=== PATIENT | female | born 1955 | race Caucasian/White ===

== ENCOUNTER 2017-07-06 12:40 | Emergency (ER) | payer MEDICAID ==
[~2017-07-06] VITALS: Ht 154.9 cm; Wt 81.6 kg
--- NOTE | 2017-07-06 13:00 | NUR ---
BB FAMILY C/O OF BLE EDEMA AND SOB ON/OFF X 2 MONTHS, WORSENING THIS AM. SEEN BY MD. SAUCEDA. FAMILY MEMBER AT . SAFETY AND COMFORT MEASURES PROVIDED. WILL MONITOR.
[2017-07-06] MEDS ORDERED: IV NS 0.9% 500 ML BAG IV ONE (13:30)
--- NOTE | 2017-07-06 13:30 | NUR ---
IV ACCESS STARTED. BLOOD DRAWN FOR LABS. MEDICATED ORDERED.
[2017-07-06 13:35] LABS: BASOPHILS # (AUTO) 0.1 /CMM (0.0-0.2); BASOPHILS % (AUTO) 0.6 % (0.0-2.0); EOSINOPHILS # (AUTO) 0.1 /CMM (0.0-0.7); EOSINOPHILS % (AUTO) 1.2 % (0.0-6.0); HEMATOCRIT 38 % (33-45); HEMOGLOBIN 12.6 g/dL (11.5-14.8); LYMPHOCYTES # (AUTO) 2.6 /CMM (0.8-4.8); LYMPHOCYTES % (AUTO) 30.3 % (20.0-44.0); MEAN CORPUSCULAR HEMOGLOBIN 30 PG (26.0-33.0); MEAN CORPUSCULAR HGB CONC 33 g/dl (31.0-36.0); MEAN CORPUSCULAR VOLUME 91 fL (82-100); MONOCYTES # (AUTO) 0.5 /CMM (0.1-1.30); MONOCYTES % (AUTO) 5.6 % (2.0-12.0); NEUTROPHILS # (AUTO) 5.4 /CMM (1.8-8.9); NEUTROPHILS % (AUTO) 62.3 % (43.0-81.0); PLATELET COUNT (AUTO) 195 /CMM (150-450); RDW COEFFICIENT OF VARIATION 13.4 (11.5-15.0); WHITE BLOOD COUNT (AUTO) 8.7 K/uL (4.3-11.0)
[2017-07-06 13:55] LABS: CALCIUM, SERUM 8.5 mg/dL (8.5-10.1); CARBON DIOXIDE 26 mmol/L (21-32); CHLORIDE 106 mmol/L (98-107); CREATININE 0.6 mg/dL (0.6-1.3); GLUCOSE 126 mg/dL (74-106); POTASSIUM 3.7 mmol/L (3.5-5.1); SODIUM SERUM 139 mmol/L (136-145); UREA NITROGEN, BLOOD 16 mg/dL (7-18)
[2017-07-06 14:01] LABS: TROPONIN I < 0.017 ng/mL (0.00-0.056)
--- NOTE | 2017-07-06 14:50 | NUR ---
PT TAKEN TO CT.
[2017-07-06] MEDS ORDERED: IOHEXOL-350 100 ML VIAL IV ONE (15:16)
[2017-07-06] MEDS ORDERED: IV NS 0.9% 250 ML IV ONE (15:17)
--- NOTE | 2017-07-06 15:50 | NUR ---
IV removed. Catheter intact and site benign. Pressure and 4x4 applied to site. No bleeding noted.
--- NOTE | 2017-07-06 15:58 | NUR ---
Patient discharged to home in stable condition. Written and verbal after care instructions given. Patient verbalizes understanding of instruction.
[2017-07-06 15:59] VITALS: BP 126/81
== END 2017-07-06 15:59 | disposition home or self-care (01) ==
LOC: ER 12:41
DX: R07.89 Other chest pain (principal)
CPT/HCPCS: 36415; 71010; 71275; 80048; 84484; 85025; 85378; 93005; 99285; A4606; J7040; J7050; Q9967; Z7610

== ENCOUNTER 2017-11-27 10:31 | Inpatient (IN) | payer MEDICAID, OTHER ==
[~2017-11-27] VITALS: Ht 152.4 cm; Wt 73.9 kg
[2017-11-27] MEDS ORDERED: KETOROLAC TROMETHAMINE 15 MG/ML VIAL ONE (10:44)
[2017-11-27] MEDS ORDERED: ALBUTEROL FS 2.5 MG/3 ML VIAL.NEB ONE (10:48)
[2017-11-27] MEDS ORDERED: IPRATROPIUM NEB FS 0.5 MG/2.5 ML AMPUL.NEB ONE (10:48)
[2017-11-27 10:57] LABS: BASOPHILS # (AUTO) 0.1 /CMM (0.0-0.2); BASOPHILS % (AUTO) 0.6 % (0.0-2.0); EOSINOPHILS # (AUTO) 0.1 /CMM (0.0-0.7); EOSINOPHILS % (AUTO) 0.3 % (0.0-6.0); HEMATOCRIT 37 % (33-45); HEMOGLOBIN 12.9 g/dL (11.5-14.8); LYMPHOCYTES # (AUTO) 1.9 /CMM (0.8-4.8); LYMPHOCYTES % (AUTO) 10.8 % (20.0-44.0); MEAN CORPUSCULAR HEMOGLOBIN 31 PG (26.0-33.0); MEAN CORPUSCULAR HGB CONC 35 g/dl (31.0-36.0); MEAN CORPUSCULAR VOLUME 88 fL (82-100); MONOCYTES # (AUTO) 0.9 /CMM (0.1-1.30); MONOCYTES % (AUTO) 5.2 % (2.0-12.0); NEUTROPHILS # (AUTO) 14.4 /CMM (1.8-8.9); NEUTROPHILS % (AUTO) 83.1 % (43.0-81.0); PLATELET COUNT (AUTO) 132 /CMM (150-450); RDW COEFFICIENT OF VARIATION 12.9 (11.5-15.0); RED BLOOD CELL COUNT(AUTO) 4.18 MIL/uL (4.0-5.2); WHITE BLOOD COUNT (AUTO) 17.4 K/uL (4.3-11.0)
[2017-11-27] MEDS ORDERED: IPRATROPIUM NEB FS 0.5 MG/2.5 ML AMPUL.NEB NEB ONE (11:00)
[2017-11-27] MEDS ORDERED: ALBUTEROL FS 2.5 MG/3 ML VIAL.NEB NEB ONE (11:00)
[2017-11-27] MEDS ORDERED: KETOROLAC TROMETHAMINE INJ 30 MG/ML VIAL IV ONE (11:00)
[2017-11-27 11:03] LABS: CALCIUM, SERUM 9.5 mg/dL (8.5-10.1); CARBON DIOXIDE 28 mmol/L (21-32); CHLORIDE 102 mmol/L (98-107); CREATININE 0.7 mg/dL (0.6-1.3); GLUCOSE 108 mg/dL (74-106); POTASSIUM 3.8 mmol/L (3.5-5.1); SODIUM SERUM 137 mmol/L (136-145); UREA NITROGEN, BLOOD 12 mg/dL (7-18)
[2017-11-27 11:07] LABS: INR 0.91 (0.85-1.15)
[2017-11-27 11:11] LABS: TROPONIN I < 0.017 ng/mL (0.00-0.056)
[2017-11-27 11:15] LABS: B-TYPE NATRIURETIC PEPTIDE 45 PG/ML (0-125)
[2017-11-27 11:28] LABS: D-DIMER 0.64 mg/L(FEU (0.17-0.50)
[2017-11-27 11:37] LABS: BAND % (MANUAL) 1 % (0.0-5.0); LYMPHOCYTES % (MANUAL) 9 % (16-48); MONOCYTES % (MANUAL) 4 % (0-11.0); NEUTROPHILS % (MANUAL) 86 (42-76)
[2017-11-27] MEDS ORDERED: IOHEXOL-350 100 ML VIAL IV ONE (13:00)
[2017-11-27] MEDS ORDERED: CT SWABBABLE VALVE TRANS SET 1 EA INFUS.SET MC ONE (13:00)
[2017-11-27] MEDS ORDERED: SIMV20TA6 PO (13:58)
[2017-11-27] MEDS ORDERED: TRAM50TA2 PO (13:58)
[2017-11-27] MEDS ORDERED: ALEN70TA45 PO (13:58)
[2017-11-27] MEDS ORDERED: ERGO500014 PO (13:58)
[2017-11-27] MEDS ORDERED: ALBU18HF2 IH (13:58)
[2017-11-27] MEDS ORDERED: NAPR-1143 PO (13:58)
[2017-11-27] MEDS ORDERED: RANI150T8 PO (13:58)
[2017-11-27] MEDS ORDERED: CEFTRIAXONE 1GM BAG (ER ONLY) 50 ML IV ONE ×2 (14:00→14:14)
[2017-11-27] MEDS ORDERED: IV NS 0.9% 1,000 ML BAG IV ONE (14:00)
[2017-11-27] MEDS ORDERED: AZITHROMYCIN 500 MG in IV D5W 250 ML IV ONE (14:00)
[2017-11-27] MEDS ORDERED: ALBUTEROL FS 2.5 MG/0.5 ML VIAL.NEB NEB PRN (15:30)
[2017-11-27] MEDS ORDERED: TRAMADOL HCL 50 MG TABLET PO PRN (15:30)
[2017-11-27] MEDS ORDERED: ONDANSETRON HCL/PF 4 MG/2 ML VIAL IVP PRN (15:30)
[2017-11-27] MEDS ORDERED: MAG HYDROX/AL HYDROX/SIMETH 30 ML UDC PO PRN (15:30)
[2017-11-27] MEDS ORDERED: HYDROCODONE/APAP 5/325MG 1 EACH TABLET PO PRN (15:30)
[2017-11-27] MEDS ORDERED: MAGNESIUM HYDROXIDE 30 ML UDC PO PRN (15:30)
[2017-11-27] MEDS ORDERED: IPRATROPIUM NEB FS 0.5 MG/2.5 ML AMPUL.NEB NEB PRN (15:30)
[2017-11-27] MEDS ORDERED: ACETAMINOPHEN 325 MG TABLET PO PRN (15:30)
[2017-11-27] MEDS ORDERED: ZOLPIDEM TARTRATE 5 MG TABLET PO PRN (15:30)
[2017-11-27] MEDS ORDERED: Z GUARD REMEDY 2 OZ OINT TP PRN (15:30)
[2017-11-27 16:00] VITALS: BP 124/64
[2017-11-27] MEDS ORDERED: KETOROLAC TROMETHAMINE INJ 30 MG/ML VIAL IV PRN (17:00)
[2017-11-27] MEDS: methylPREDNISolone SOD SUCC 40 MG/ML VIAL IV SCH ×2 (17:27→21:10)
[2017-11-27] MEDS: SIMVASTATIN 20 MG TABLET PO SCH (17:28)
[2017-11-27] MEDS: NAPROXEN 500 MG TABLET PO SCH (17:28)
[2017-11-27] MEDS: ENOXAPARIN SODIUM 40 MG/0.4 ML DISP.SYRIN SQ SCH (17:29)
[2017-11-27] MEDS: LEVOFLOXACIN 750 MG /D5W 150ML 750 MG in PREMIX 1 EA IV SCH (17:40)
[2017-11-27] MEDS: IV NS 0.9% 1,000 ML IV PRN (17:40)
[2017-11-27 20:00] VITALS: BP 110/56
[2017-11-28] VITALS: BP 114/79
[2017-11-28 04:00] VITALS: BP 101/65
[2017-11-28] MEDS: methylPREDNISolone SOD SUCC 40 MG/ML VIAL IV SCH ×3 (04:32→20:16)
[2017-11-28] MEDS: IV NS 0.9% 1,000 ML IV PRN (04:32)
[2017-11-28 06:59] LABS: HEMATOCRIT 35 % (33-45); HEMOGLOBIN 11.8 g/dL (11.5-14.8); LYMPHOCYTES # (AUTO) 1.3 /CMM (0.8-4.8); LYMPHOCYTES % (AUTO) 8.9 % (20.0-44.0); MEAN CORPUSCULAR HEMOGLOBIN 31 PG (26.0-33.0); MEAN CORPUSCULAR HGB CONC 34 g/dl (31.0-36.0); MEAN CORPUSCULAR VOLUME 91 fL (82-100); MONOCYTES # (AUTO) 0.2 /CMM (0.1-1.30); MONOCYTES % (AUTO) 1.5 % (2.0-12.0); NEUTROPHILS # (AUTO) 13.4 /CMM (1.8-8.9); NEUTROPHILS % (AUTO) 89.6 % (43.0-81.0); PLATELET COUNT (AUTO) 127 /CMM (150-450); RDW COEFFICIENT OF VARIATION 14.3 (11.5-15.0); RED BLOOD CELL COUNT(AUTO) 3.81 MIL/uL (4.0-5.2)
[2017-11-28 07:42] LABS: CALCIUM, SERUM 8.7 mg/dL (8.5-10.1); CREATININE 0.6 mg/dL (0.6-1.3); MAGNESIUM 1.9 mg/dL (1.8-2.4); PHOSPHORUS 3.8 mg/dL (2.5-4.9)
[2017-11-28 08:00] VITALS: BP 113/64
[2017-11-28] MEDS: FAMOTIDINE (20 MG) 20 MG TABLET PO SCH (09:05)
[2017-11-28] MEDS: NAPROXEN 500 MG TABLET PO SCH ×2 (09:05→17:13)
[2017-11-28 16:00] VITALS: BP 120/67
[2017-11-28] MEDS: SIMVASTATIN 20 MG TABLET PO SCH (17:13)
[2017-11-28] MEDS: LEVOFLOXACIN 750 MG /D5W 150ML 750 MG in PREMIX 1 EA IV SCH (17:14)
[2017-11-28 20:00] VITALS: BP 130/69
[2017-11-28] MEDS: ENOXAPARIN SODIUM 40 MG/0.4 ML DISP.SYRIN SQ SCH (20:15)
[2017-11-28] MEDS ORDERED: SIMVASTATIN 20 MG TABLET PO SCH (21:00)
[2017-11-29] MEDS: IV NS 0.9% 1,000 ML IV PRN (02:44)
[2017-11-29] MEDS: methylPREDNISolone SOD SUCC 40 MG/ML VIAL IV SCH (04:04)
[2017-11-29 08:00] VITALS: BP 131/70
[2017-11-29] MEDS: FAMOTIDINE (20 MG) 20 MG TABLET PO SCH (08:38)
[2017-11-29] MEDS: NAPROXEN 500 MG TABLET PO SCH (08:38)
[2017-11-29] MEDS ORDERED: LEVO750T21 PO (11:11)
[2017-11-29] MEDS ORDERED: METH4TAB17 PO (11:11)
[2017-11-29] MEDS ORDERED: GUAI600T53 PO (11:11)
[2017-11-30] MEDS ORDERED: ALENDRONATE 70 MG TABLET PO SCH (07:30)
[2017-11-30] MEDS ORDERED: ERGOCALCIFEROL (VITAMIN D 2) 50,000 UNIT CAPSULE PO SCH (09:00)
== END 2017-11-29 12:15 | disposition home or self-care (01) | DRG 720 ==
LOC: ER 10:38 → MED 14:18 → TELE 16:46 → MED 11-28 05:33
PROVIDERS: ADMIT Nurse Practitioner Acute Care; ATTEND Nurse Practitioner Acute Care
DX: A41.9 Sepsis, unspecified organism (principal); J18.9 Pneumonia, unspecified organism; I50.9 Heart failure, unspecified; E66.9 Obesity, unspecified; Z68.31 Body mass index [BMI] 31.0-31.9, adult; J45.909 Unspecified asthma, uncomplicated; E78.5 Hyperlipidemia, unspecified; Z87.891 Personal history of nicotine dependence; Z90.710 Acquired absence of both cervix and uterus; D47.3 Essential (hemorrhagic) thrombocythemia
CPT/HCPCS: 36415; 71045-TC; 80048-TC; 80061-TC; 83605-TC; 83735-TC; 83880; 84100-TC; 84484-TC; 85025-TC; 85378-TC; 85730-TC; 87040-TC; 87400; 93307-TC; 93971-TC; A4216; A4606; J0456; J0696; J1650; J1885; J1956; J2920; J7030; J7040; J7060; Q9967; Z7610

== ENCOUNTER 2018-02-15 13:39 | Emergency (ER) | payer MEDICAID, OTHER ==
[~2018-02-15] VITALS: Ht 162.6 cm; Wt 72.6 kg
[~2018-02-15 13:39] MED LIST: ALBU18HF2 IH; ALEN70TA45 PO; ERGO500014 PO; GUAI600T53 PO; LEVO750T21 PO; METH4TAB17 PO; NAPR-1143 PO; RANI150T8 PO; SIMV20TA6 PO; TRAM50TA2 PO
--- NOTE | 2018-02-15 13:39 | NUR ---
A/OX4, PT CAME TO ER W/ DAUGHTER C/O OF BACK PAIN THAT RADIATES TO HER CHEST X 1 WEEK NOW. SKIN IS WARM AND NON DIAPHORETIC. RR EVEN AND UNLABORED. GOWNED AND PLACED ON CONT MONTIORING. ALL NEEDS ARE ATTENDED, KPET WARM AND COMFORTABLE. PENDING ER MD PULIDO
[2018-02-15] MEDS ORDERED: KETOROLAC TROMETHAMINE INJ 30 MG/ML VIAL ONE (15:16)
[2018-02-15 15:17] LABS: BASOPHILS # (AUTO) 0.1 /CMM (0.0-0.2); BASOPHILS % (AUTO) 0.7 % (0.0-2.0); EOSINOPHILS % (AUTO) 1.8 % (0.0-6.0); HEMATOCRIT 36 % (33-45); HEMOGLOBIN 12.2 g/dL (11.5-14.8); LYMPHOCYTES # (AUTO) 3.3 /CMM (0.8-4.8); LYMPHOCYTES % (AUTO) 31.5 % (20.0-44.0); MEAN CORPUSCULAR HGB CONC 34 g/dl (31.0-36.0); MEAN CORPUSCULAR VOLUME 89 fL (82-100); MONOCYTES # (AUTO) 0.6 /CMM (0.1-1.30); MONOCYTES % (AUTO) 5.7 % (2.0-12.0); NEUTROPHILS # (AUTO) 6.2 /CMM (1.8-8.9); NEUTROPHILS % (AUTO) 60.3 % (43.0-81.0); PLATELET COUNT (AUTO) 139 /CMM (150-450); RDW COEFFICIENT OF VARIATION 13.9 (11.5-15.0); RED BLOOD CELL COUNT(AUTO) 4.05 MIL/uL (4.0-5.2); WHITE BLOOD COUNT (AUTO) 10.4 K/uL (4.3-11.0)
--- NOTE | 2018-02-15 15:19 | NUR ---
toradol given ivp lac 20g pain 7/10 to back and chest.
[2018-02-15 15:30] LABS: CALCIUM, SERUM 9.1 mg/dL (8.5-10.1); CARBON DIOXIDE 27 mmol/L (21-32); CHLORIDE 106 mmol/L (98-107); CREATININE 0.6 mg/dL (0.6-1.3); GLUCOSE 99 mg/dL (74-106); INR 0.9 (0.85-1.15); POTASSIUM 3.6 mmol/L (3.5-5.1); SODIUM SERUM 141 mmol/L (136-145); UREA NITROGEN, BLOOD 17 mg/dL (7-18)
[2018-02-15] MEDS ORDERED: KETOROLAC TROMETHAMINE INJ 30 MG/ML VIAL IV ONE (15:30)
[2018-02-15 15:39] LABS: TROPONIN I < 0.017 ng/mL (0.00-0.056)
[2018-02-15 16:30] VITALS: BP 129/75
--- NOTE | 2018-02-15 16:43 | NUR ---
IV removed. Catheter intact and site benign. Pressure and 4x4 applied to site. No bleeding noted.Patient discharged to home in stable condition. Written and verbal after care instructions given. Patient verbalizes understanding of instruction.
[2018-04-13] MEDS ORDERED: AMOX500T2 PO (11:46)
[2018-04-13] MEDS ORDERED: AZIT250T PO (11:46)
== END 2018-02-15 16:47 | disposition home or self-care (01) ==
LOC: ER 13:40
DX: M54.6 Pain in thoracic spine (principal); E78.5 Hyperlipidemia, unspecified; Z87.01 Personal history of pneumonia (recurrent)
CPT/HCPCS: 36415; 71045; 80048; 84484; 85025; 85730; 93005; 96374; 99285; A4606; J1885; Z7610

== ENCOUNTER 2018-04-09 17:22 | Inpatient (IN) | payer OTHER, MEDICARE ==
[~2018-04-09] VITALS: Ht 167.6 cm; Wt 76.0 kg
--- NOTE | 2018-04-09 17:36 | NUR ---
PT AMBULATORY TO ER BED 15 C/O PRESSURE LIKE CP R/T LUE AND SOB. PT ALSO C/O GENERALIZED MALAISE. HX OF PNEUMONIA 2 MONTHS AGO. GOWNED AND PLACED ON MONITOR. STABLE VITALS. AWAITING MD PULIDO.
--- NOTE | 2018-04-09 17:57 | NUR ---
DR NUNEZ AT BEDSIDE FOR EVAL.
[2018-04-09] MEDS ORDERED: IV NS 0.9% 1,000 ML BAG IV ONE (18:00)
[2018-04-09] MEDS ORDERED: KETOROLAC TROMETHAMINE INJ 30 MG/ML VIAL IV ONE (18:00)
--- NOTE | 2018-04-09 18:10 | NUR ---
IV LINE STARTED BLOOD DRAWN AND SENT TO LAB.
[2018-04-09] MEDS ORDERED: KETOROLAC TROMETHAMINE 15 MG/ML VIAL ONE (18:12)
[2018-04-09 18:20] LABS: BASOPHILS # (AUTO) 0.1 /CMM (0.0-0.2); BASOPHILS % (AUTO) 1.8 % (0.0-2.0); EOSINOPHILS % (AUTO) 0.1 % (0.0-6.0); HEMATOCRIT 39 % (33-45); HEMOGLOBIN 12.8 g/dL (11.5-14.8); LYMPHOCYTES # (AUTO) 1.1 /CMM (0.8-4.8); LYMPHOCYTES % (AUTO) 16.5 % (20.0-44.0); MEAN CORPUSCULAR HEMOGLOBIN 30 PG (26.0-33.0); MEAN CORPUSCULAR HGB CONC 33 g/dl (31.0-36.0); MEAN CORPUSCULAR VOLUME 89 fL (82-100); MONOCYTES # (AUTO) 0.3 /CMM (0.1-1.30); MONOCYTES % (AUTO) 4.9 % (2.0-12.0); NEUTROPHILS % (AUTO) 76.7 % (43.0-81.0); RDW COEFFICIENT OF VARIATION 13.9 (11.5-15.0); RED BLOOD CELL COUNT(AUTO) 4.33 MIL/uL (4.0-5.2); WHITE BLOOD COUNT (AUTO) 6.5 K/uL (4.3-11.0)
[2018-04-09 18:23] LABS: PLATELET COUNT (AUTO) 50 /CMM (150-450)
[2018-04-09 18:24] LABS: CALCIUM, SERUM 9.2 mg/dL (8.5-10.1); CARBON DIOXIDE 26 mmol/L (21-32); CHLORIDE 103 mmol/L (98-107); CREATININE 0.7 mg/dL (0.6-1.3); GLUCOSE 122 mg/dL (74-106); POTASSIUM 3.7 mmol/L (3.5-5.1); SODIUM SERUM 135 mmol/L (136-145); UREA NITROGEN, BLOOD 10 mg/dL (7-18)
[2018-04-09 18:26] LABS: INR 0.95 (0.85-1.15)
[2018-04-09 18:32] LABS: TROPONIN I < 0.017 ng/mL (0.00-0.056)
[2018-04-09] MEDS ORDERED: MECL-138 PO (18:32)
[2018-04-09] MEDS ORDERED: OMEP40CA37 PO (18:32)
[2018-04-09] MEDS ORDERED: GUAI600T53 PO (18:32)
[2018-04-09] MEDS ORDERED: FLUT1BLS IH (18:32)
[2018-04-09] MEDS ORDERED: BUSP5TAB3 PO (18:32)
[2018-04-09] MEDS ORDERED: METH-406 PO (18:32)
--- NOTE | 2018-04-09 18:50 | NUR ---
PT TO RADIOLOGY FOR CHEST CTA VIA WHEELCHAIR.
[2018-04-09] MEDS ORDERED: IOHEXOL-350 100 ML VIAL IV ONE (18:53)
--- NOTE | 2018-04-09 19:41 | NUR ---
PATIENT ASSIGNED TO TELE [id number]
[2018-04-09 19:57] LABS: BAND % (MANUAL) 2 % (0.0-5.0); LYMPHOCYTES % (MANUAL) 14 % (16-48); MONOCYTES % (MANUAL) 6 % (0-11.0); NEUTROPHILS % (MANUAL) 77 (42-76); REACTIVE LYMPHOCYTES 1 % (0-0)
[2018-04-09] MEDS ORDERED: AZITHROMYCIN 500 MG in IV D5W 250 ML IV ONE (20:00)
[2018-04-09] MEDS ORDERED: MORPHINE SULFATE INJ 2 MG/ML DISP.SYRIN IV ONE (20:00)
[2018-04-09] MEDS ORDERED: CEFTRIAXONE 1GM BAG (ER ONLY) 1 GM/50 ML PIGGYBACK IV ONE (20:00)
[2018-04-09] MEDS ORDERED: MORPHINE SULFATE INJ 4 MG/ML DISP.SYRIN ONE (20:00)
[2018-04-09] MEDS ORDERED: CEFTRIAXONE 1 G VIAL ONE (20:09)
[2018-04-09] MEDS ORDERED: AZITHROMYCIN 500 MG VIAL ONE (20:10)
[2018-04-09] MEDS ORDERED: IV NS 0.9% 1,000 ML BAG IV PRN (20:30)
--- NOTE | 2018-04-09 20:34 | NUR ---
report given to halley doyle for continuation of care.
[2018-04-09 20:55] VITALS: BP 147/72
--- NOTE | 2018-04-09 20:55 | NUR ---
PT ARRIVE ON UNIT VIA GURNEY AND ADMITTED TO TELEMETRY. PT A/O X4 TAJIK SPEAKING, DAUGHTER AT THE BED SIDE. ADMITTING DX PNEUMONIA. PT ARRIVE WITH ONGOING NS 0.9% AT 75 ML/HR. PT HAD EPISODE OF VOMITING NON SIGNIFICANT AMOUNT COLORLESS. ADMITTING HOME HEALTH CARE COORDINATOR IS DUDLEY. WILL CONTINUE TO MONITOR AND FOLLOW HOME HEALTH CARE COORDINATOR ORDERS.
[2018-04-09 21:45] VITALS: BP 147/72
--- NOTE | 2018-04-09 21:50 | NUR ---
PT SEEN BY ADEBAYO DUDLEY . WILL FOLLOW UP WITH ORDERS
[2018-04-09] MEDS ORDERED: IV NS 0.9% 1,000 ML IV PRN (22:04)
[2018-04-09] MEDS ORDERED: HYDROCODONE/APAP 5/325MG 1 EACH TABLET PO PRN (22:30)
[2018-04-09] MEDS ORDERED: Z GUARD REMEDY 2 OZ OINT TP PRN (22:30)
[2018-04-09] MEDS ORDERED: MORPHINE SULFATE INJ 2 MG/ML DISP.SYRIN IV PRN (22:30)
[2018-04-09] MEDS ORDERED: ONDANSETRON HCL/PF 4 MG/2 ML VIAL IVP PRN (22:30)
[2018-04-09] MEDS ORDERED: MAGNESIUM HYDROXIDE 30 ML UDC PO PRN (22:30)
[2018-04-09] MEDS ORDERED: GUAIFENESIN LA 600 MG TABLET.SA PO PRN (22:30)
[2018-04-09] MEDS ORDERED: MAG HYDROX/AL HYDROX/SIMETH 30 ML UDC PO PRN (22:30)
[2018-04-09] MEDS: CEFTRIAXONE 1 G in IV NS 0.9% 50 ML IV SCH (22:54)
[2018-04-10] MEDS: ZOLPIDEM TARTRATE 5 MG TABLET PO PRN (00:36)
[2018-04-10 00:48] VITALS: BP 105/58
[2018-04-10 04:30] VITALS: BP 115/60
[2018-04-10 05:58] LABS: BASOPHILS % (AUTO) 0.3 % (0.0-2.0); EOSINOPHILS % (AUTO) 0.3 % (0.0-6.0); HEMATOCRIT 38 % (33-45); HEMOGLOBIN 12.6 g/dL (11.5-14.8); LYMPHOCYTES # (AUTO) 1.3 /CMM (0.8-4.8); LYMPHOCYTES % (AUTO) 19.4 % (20.0-44.0); MEAN CORPUSCULAR HEMOGLOBIN 31 PG (26.0-33.0); MEAN CORPUSCULAR HGB CONC 33 g/dl (31.0-36.0); MEAN CORPUSCULAR VOLUME 92 fL (82-100); MONOCYTES # (AUTO) 0.5 /CMM (0.1-1.30); MONOCYTES % (AUTO) 8.4 % (2.0-12.0); NEUTROPHILS # (AUTO) 4.7 /CMM (1.8-8.9); NEUTROPHILS % (AUTO) 71.6 % (43.0-81.0); RDW COEFFICIENT OF VARIATION 14.7 (11.5-15.0); RED BLOOD CELL COUNT(AUTO) 4.11 MIL/uL (4.0-5.2); WHITE BLOOD COUNT (AUTO) 6.5 K/uL (4.3-11.0)
--- NOTE | 2018-04-10 06:13 | NUR ---
MS RN CLOSING NOTES PT IN BED, A/O X4 , MOHAWK SPEAKING. PT ON ROOM AIR TOLERATING WELL. PT HAS IV ASSESS ON R HAND G #20, ONGOING NS AT 75ML/HR. NO DISTRESS NOTED , PT DENIES CHEST PAIN AT THIS TIME. SAFETY PRECAUTIONS IN PLACE, CALL LIGHT WITHIN REACH. WILL ENDORSE TO NEXT SHIFT FOR MOJGAN.
[2018-04-10 06:17] LABS: ALBUMIN 2.8 g/dL (3.4-5.0); BILIRUBIN,TOTAL 0.3 mg/dL (0.2-1.0); CALCIUM, SERUM 7.9 mg/dL (8.5-10.1); CREATININE 0.7 mg/dL (0.6-1.3); MAGNESIUM 1.7 mg/dL (1.8-2.4); PHOSPHORUS 3.6 mg/dL (2.5-4.9); POTASSIUM 3.5 mmol/L (3.5-5.1); TOTAL PROTEIN, SERUM 6.4 g/dL (6.4-8.2)
[2018-04-10 06:22] LABS: PLATELET COUNT (AUTO) 48 /CMM (150-450)
[2018-04-10 06:26] LABS: THYROID STIMULATING HORMONE 4.353 uIU/mL (0.358-3.74)
--- NOTE | 2018-04-10 06:40 | NUR ---
LAB CALLED FOR PLT LOW RESULT OF 48.
--- NOTE | 2018-04-10 07:05 | NUR ---
COMPENSATOR NOTES PATIENT IN BED ALERT ORIENTED X4 . NO ACUTE DISTRESS NOTED. BREATHING UNLABORED. NO SOB NOTED. NO FACIAL GRIMACING NOTED. IV ACCESS PATENT AND INTACT, NO REDNESS OR SWELLING NOTED. SAFETY MEASURES IN PLACE. CALL LIGHT WITHIN REACH. WILL CONTINUE TO MONITOR ACCORDINGLY.
[2018-04-10] MEDS ORDERED: MECLIZINE HCL 25 MG TABLET PO PRN (07:30)
[2018-04-10] MEDS ORDERED: ALBUTEROL FS 2.5 MG/3 ML VIAL.NEB NEB PRN (07:35)
[2018-04-10 08:00] VITALS: BP 101/59
[2018-04-10] MEDS: Magnesium 1GM/D5W 100ML PREMIX 100 ML IV SCH ×2 (08:20→10:02)
[2018-04-10] MEDS: METHOCARBAMOL (750MG) 750 MG TABLET PO SCH ×2 (08:20→17:12)
[2018-04-10] MEDS: PANTOPRAZOLE 40 MG TABLET.DR PO SCH (08:20)
[2018-04-10] MEDS: FAMOTIDINE (20 MG) 20 MG TABLET PO SCH ×2 (08:20→21:10)
[2018-04-10] MEDS: busPIRone 5 MG TABLET PO SCH ×2 (08:20→17:12)
[2018-04-10] MEDS: FLUTICASONE/VILANTEROL 1 EACH BLST.W.DEV IH SCH ×2 (08:21→17:13)
--- NOTE | 2018-04-10 09:45 | NUR ---
JIG BORER NOTES NOTIFIED SOFTWARE ENGINEERING ASSOCIATE MANAGER YOLY BEAL REGADING LOW PLATELET LEVEL, NO ORDERS MADE AT THIS TIME.
[2018-04-10 09:55] LABS: BAND % (MANUAL) 3 % (0.0-5.0); EOSINOPHILS % (MANUAL) 1 % (0-4); LYMPHOCYTES % (MANUAL) 18 % (16-48); MONOCYTES % (MANUAL) 4 % (0-11.0); NEUTROPHILS % (MANUAL) 74 (42-76)
[2018-04-10] MEDS: ACETAMINOPHEN 325 MG TABLET PO PRN ×2 (10:33→18:27)
[2018-04-10 12:00] VITALS: BP 138/76
[2018-04-10 16:00] VITALS: BP 107/63
[2018-04-10] MEDS: LACTOBACILLUS RHAMNOSUS GG 1 EACH CAP.SPRINK PO SCH (17:12)
--- NOTE | 2018-04-10 18:56 | NUR ---
MS RN NOTES PATIENT IN BED ALERT ORIENTED X4. NO ACUTE DISTRESS NOTED. BREATHING UNLABORED. NO SOB NOTED. NO FACIAL GRIMACING NOTED. IV ACCESS PATENT AND INTACT, NO REDNESS OR SWELLING NOTED.DUE MEDICATIONS GIVEN, NO ASE NOTED. NEEDS ATTENDED AND ANTICIPATED. KEPT CLEAN DRY AND COMFORTABLE. SAFETY MEASURES IN PLACE. CALL LIGHT WITHIN REACH. WILL ENDORSE TO NIGHT NURSE FOR CONTINUITY OF CARE..
--- NOTE | 2018-04-10 19:00 | NUR ---
MS RN OPENING NOTES PATIENT IN BED ALERT ORIENTED X4. NO ACUTE DISTRESS NOTED.DENIES PAIN AT THIS TIME. IV ACCESS PATENT AND INTACT. PT SWEDISH SPEAKING . WILL CONTINUE TO MONITOR AND CARE.
--- NOTE | 2018-04-10 19:22 | NUR ---
MS ERIN OPENING NOTES PATIENT IN BED ALERT ORIENTED X4. NO ACUTE DISTRESS NOTED.DENIES PAIN AT THIS TIME. IV ACCESS PATENT AND INTACT.PT ON F/C DUE TO MULTIPLE WOUNDS. SAFETY MEASURES IN PLACE. CALL LIGHT WITHIN REACH. WILL CONTINUE TO MONITOR Addendum: 04/10/18 at 1926 by NICOLETTE MARTIN RN WRONG PATIENT DOCUMENTATION
[2018-04-10 20:00] VITALS: BP 121/64
[2018-04-10] MEDS: AZITHROMYCIN 500 MG in IV D5W 250 ML IV SCH (20:08)
--- NOTE | 2018-04-10 21:30 | NUR ---
iv line infiltrated, removed , hand elevated . A new iv line inserted on left AC # 22.
[2018-04-10] MEDS: CEFTRIAXONE 1 G in IV NS 0.9% 50 ML IV SCH (23:31)
--- NOTE | 2018-04-11 06:46 | NUR ---
ms rn closing notes PT IN BED, A/O X4, AMBULATORY WITH ASSISTANCE. NO DISTRESS, NO PAIN , NO FEVER AT THIS TIME. IV LINE RAC G 20 INTACT AND PATENT. BED IN LOWEST AND LOCKED POSITION, SIDE RAILS UP X2. CALL LIGHT WITHIN REACH. PT MOHAWK SPEAKING. WILL ENDORSE TO NEXT SHIFT FOR MOJGAN.
[2018-04-11 08:00] VITALS: BP 128/66
--- NOTE | 2018-04-11 08:00 | NUR ---
MS RN NOTES PATIENT IN BED RESTING NO SOB OR ACUTE DISTRESS NOTED. PATIENT ALERT, ORIENTED X3 PATIENT DENIES ANY PAIN. PERIPHERAL IV INTACT PATENT. BED IN LOW LOCKED POSITION . CALL LIGHT WITHIN REACH. WILL CONTINUE TO MONITOR.
[2018-04-11] MEDS: FAMOTIDINE (20 MG) 20 MG TABLET PO SCH ×2 (08:42→20:29)
[2018-04-11] MEDS: FLUTICASONE/VILANTEROL 1 EACH BLST.W.DEV IH SCH (08:42)
[2018-04-11] MEDS: METHOCARBAMOL (750MG) 750 MG TABLET PO SCH ×2 (08:42→17:11)
[2018-04-11] MEDS: busPIRone 5 MG TABLET PO SCH ×2 (08:42→17:11)
[2018-04-11] MEDS: LACTOBACILLUS RHAMNOSUS GG 1 EACH CAP.SPRINK PO SCH ×2 (08:42→17:11)
[2018-04-11] MEDS: PANTOPRAZOLE 40 MG TABLET.DR PO SCH (08:44)
[2018-04-11 11:03] LABS: BASOPHILS % (AUTO) 0.5 % (0.0-2.0); EOSINOPHILS % (AUTO) 0.4 % (0.0-6.0); HEMATOCRIT 37 % (33-45); HEMOGLOBIN 12.3 g/dL (11.5-14.8); LYMPHOCYTES # (AUTO) 1.3 /CMM (0.8-4.8); LYMPHOCYTES % (AUTO) 22.7 % (20.0-44.0); MEAN CORPUSCULAR HEMOGLOBIN 30 PG (26.0-33.0); MEAN CORPUSCULAR HGB CONC 33 g/dl (31.0-36.0); MEAN CORPUSCULAR VOLUME 91 fL (82-100); MONOCYTES # (AUTO) 0.5 /CMM (0.1-1.30); MONOCYTES % (AUTO) 9.2 % (2.0-12.0); NEUTROPHILS # (AUTO) 3.8 /CMM (1.8-8.9); NEUTROPHILS % (AUTO) 67.2 % (43.0-81.0); PLATELET COUNT (AUTO) 75 /CMM (150-450); RDW COEFFICIENT OF VARIATION 14.6 (11.5-15.0); RED BLOOD CELL COUNT(AUTO) 4.11 MIL/uL (4.0-5.2); WHITE BLOOD COUNT (AUTO) 5.7 K/uL (4.3-11.0)
[2018-04-11 11:15] LABS: CALCIUM, SERUM 7.9 mg/dL (8.5-10.1); CREATININE 0.8 mg/dL (0.6-1.3); POTASSIUM 3.7 mmol/L (3.5-5.1)
[2018-04-11 11:21] LABS: IRON, SERUM 28 ug/dl (50-175); TOTAL IRON BINDING CAPACITY 317 ug/dl (250-450)
[2018-04-11 11:33] LABS: FERRITIN 203 ng/mL (8-388)
[2018-04-11 11:41] LABS: LYMPHOCYTES % (MANUAL) 20 % (16-48); MONOCYTES % (MANUAL) 8 % (0-11.0); NEUTROPHILS % (MANUAL) 72 (42-76)
[2018-04-11] MEDS: ACETAMINOPHEN 325 MG TABLET PO PRN (14:48)
[2018-04-11 16:00] VITALS: BP 127/58
--- NOTE | 2018-04-11 18:15 | NUR ---
MS RN NOTES PATIENT IN BED RESTING NO SOB OR ACUTE DISTRESS NOTED. ALL DUE MEDICATIONS ADMINISTERED. ALL NEEDS MET WILL ENDORSE TO PM SHIFT MOJGAN .
[2018-04-11] MEDS: ALBUTEROL FS 2.5 MG/3 ML VIAL.NEB NEB SCH (19:23)
--- NOTE | 2018-04-11 19:35 | NUR ---
MS RN OPENING NOTES RECEIVED PATIENT IN BED ALERT ORIENTED X 4. NO ACUTE DISTRESS NOTED. DENIES PAIN AT THIS TIME. IV ACCESS PATENT AND INTACT,HL. FAMILY @ BEDSIDE. AMBULATORY TOLERATED. PT ALLISON SPEAKING . BED IN LOW LOCKED POSITION. SAFETY MEASURES IN PLACE. CALL LIGHT WITHIN REACH. WILL CONTINUE TO MONITOR AND CARE.
[2018-04-11 20:00] VITALS: BP 124/71
[2018-04-11] MEDS: AZITHROMYCIN 500 MG in IV D5W 250 ML IV SCH (20:29)
[2018-04-11] MEDS: CEFTRIAXONE 1 G in IV NS 0.9% 50 ML IV SCH (23:07)
--- NOTE | 2018-04-11 23:30 | NUR ---
IV SITE CHANGED PT'S LEFT FA IV SITE NOTED TO BE REDDENED, IV CATH REMOVED, COLD PACK APPLIED. NEW IV CATH INSERTED TO LEFT WRIST WITH GOOD BLOOD FLOW RETURN. PROCEDURE TOLERATED WELL BY THE PT. NO COMPLICATIONS NOTED. IN STABLE CONDITION.
[2018-04-12] MEDS: ALBUTEROL FS 2.5 MG/3 ML VIAL.NEB NEB SCH ×4 (01:24→19:09)
--- NOTE | 2018-04-12 03:00 | NUR ---
MS RN NOTE PT IS SLEEPING COMFORTABLY. NO MOJGAN NOTED.
--- NOTE | 2018-04-12 06:33 | NUR ---
MS RN CLOSING NOTE PT IS RESTING IN BED, A/O X 4, AMBULATORY GORDON. NO DISTRESS, NO PAIN , NO FEVER AT THIS TIME. IV LINE TO LEFT WRIST G 20 INTACT AND PATENT, SL. BED IN LOWEST AND LOCKED POSITION, SIDE RAILS UP X 2. CALL LIGHT WITHIN REACH. PT MALTESE SPEAKING. WILL ENDORSE TO NEXT SHIFT FOR MOJGAN.
--- NOTE | 2018-04-12 07:30 | NUR ---
RN OPENING NOTES RECEIVED PT. IN BED A&OX4. BREATHING UNLABORED, AND EVENLY ON ROOM AIR. NO S/S OF ACUTE DISTRESS. IV ON LEFT WRIST INTACT. BED IS IN LOWEST, AND LOCKED POSITION. 2 SIDE RAILS UP, AND INSTRUCTED PT. TO USE CALL LIGHT FOR ASSISTANCE.
[2018-04-12 08:00] VITALS: BP 145/78
--- NOTE | 2018-04-12 08:00 | NUR ---
PER RT PT. REFUSED RESPIRATORY TREATMENT.
[2018-04-12] MEDS: PANTOPRAZOLE 40 MG TABLET.DR PO SCH (08:03)
[2018-04-12] MEDS: ACETAMINOPHEN 325 MG TABLET PO PRN (08:03)
[2018-04-12] MEDS: FAMOTIDINE (20 MG) 20 MG TABLET PO SCH ×2 (08:52→20:30)
[2018-04-12] MEDS: METHOCARBAMOL (750MG) 750 MG TABLET PO SCH ×2 (08:52→16:57)
[2018-04-12] MEDS: busPIRone 5 MG TABLET PO SCH ×2 (08:52→16:57)
[2018-04-12] MEDS: LACTOBACILLUS RHAMNOSUS GG 1 EACH CAP.SPRINK PO SCH ×2 (08:53→16:57)
[2018-04-12 12:29] LABS: BASOPHILS % (AUTO) 0.4 % (0.0-2.0); EOSINOPHILS % (AUTO) 2.2 % (0.0-6.0); HEMATOCRIT 36 % (33-45); HEMOGLOBIN 12.1 g/dL (11.5-14.8); LYMPHOCYTES # (AUTO) 1.7 /CMM (0.8-4.8); LYMPHOCYTES % (AUTO) 32.5 % (20.0-44.0); MEAN CORPUSCULAR HEMOGLOBIN 30 PG (26.0-33.0); MEAN CORPUSCULAR HGB CONC 33 g/dl (31.0-36.0); MEAN CORPUSCULAR VOLUME 92 fL (82-100); MONOCYTES # (AUTO) 0.6 /CMM (0.1-1.30); MONOCYTES % (AUTO) 11.8 % (2.0-12.0); NEUTROPHILS # (AUTO) 2.8 /CMM (1.8-8.9); NEUTROPHILS % (AUTO) 53.1 % (43.0-81.0); PLATELET COUNT (AUTO) 92 /CMM (150-450); RED BLOOD CELL COUNT(AUTO) 3.97 MIL/uL (4.0-5.2); WHITE BLOOD COUNT (AUTO) 5.2 K/uL (4.3-11.0)
[2018-04-12 13:22] LABS: BAND % (MANUAL) 7 % (0.0-5.0); LYMPHOCYTES % (MANUAL) 11 % (16-48); MONOCYTES % (MANUAL) 12 % (0-11.0); NEUTROPHILS % (MANUAL) 70 (42-76)
[2018-04-12 13:28] LABS: CALCIUM, SERUM 8.4 mg/dL (8.5-10.1); CREATININE 0.9 mg/dL (0.6-1.3); POTASSIUM 3.9 mmol/L (3.5-5.1)
[2018-04-12 16:00] VITALS: BP 125/68
[2018-04-12] MEDS: SOD FERRIC GLUC 125 MG in IV NS 0.9% 100 ML IV SCH (16:55)
--- NOTE | 2018-04-12 19:00 | NUR ---
MS RN OPENING NOTE Patient was seen sitting upright in bed receiving a scheduled breathing treatment by RT. Patient is AAOx4, normally breathes on RA, currently shows no signs of acute distress. Left wrist IV is intact and patent. Bed is in the low/locked position, two side rails up, and call norwood within reach. Two sons are at the bedside. Patient does not have any immediate needs or concerns. Will continue to monitor.
--- NOTE | 2018-04-12 19:30 | NUR ---
RN CLOSING NOTES PT. IS SITTING UP IN BED A&OX4. PT.'S FAMILY IS AT BEDSIDE. BREATHING UNLABORED, AND EVENLY ON ROOM AIR. NO S/S OF ACUTE DISTRESS. IV ON LEFT WRIST INTACT, AND PATENT. BED IS IN LOWEST, AND LOCKED POSITION. 2 SIDE RAILS UP, AND INSTRUCTED PT. TO USE CALL LIGHT FOR ASSISTANCE. WILL ENDORSE REPORT TO NURSE.
[2018-04-12 20:00] VITALS: BP 125/71
[2018-04-12] MEDS: AZITHROMYCIN 500 MG in IV D5W 250 ML IV SCH (20:30)
[2018-04-12] MEDS ORDERED: ERGOCALCIFEROL (VITAMIN D 2) 50,000 UNIT CAPSULE PO SCH (22:30)
[2018-04-12] MEDS ORDERED: ALENDRONATE 70 MG TABLET PO SCH (22:30)
--- NOTE | 2018-04-12 23:00 | NUR ---
MS RN NOTE - New IV 24g IV in the left wrist was removed around 20:15 PM due to pain, redness, and swelling. Antibiotics disconnected and put on hold at that time. I attempted to start a new IV twice but was unsuccessful. Charge Nurse Corrie attempted new IV but was unsuccessful. Lucero, supervising nurse, successfully started new IV in the left wrist 22g. Antibiotics have been connected and restarted. IV Rocephin scheduled for 0 will be administered late but as soon as current IV antibiotic is complete.
[2018-04-13] MEDS: CEFTRIAXONE 1 G in IV NS 0.9% 50 ML IV SCH (00:31)
[2018-04-13] MEDS: ZOLPIDEM TARTRATE 5 MG TABLET PO PRN (00:36)
--- NOTE | 2018-04-13 00:37 | NUR ---
MS RN NOTE - Ambien Patient requested sleeping medication for difficulty falling asleep, despite making room "sleep friendly", i.e. minimizing noise and light. 5mg PO Ambien administered per orders.
[2018-04-13] MEDS: ALBUTEROL FS 2.5 MG/3 ML VIAL.NEB NEB SCH ×4 (01:30→13:57)
--- NOTE | 2018-04-13 06:47 | NUR ---
MS RN CLOSING NOTE Patient is AAOx4, breathing on RA with no SOB, and no signs of acute distress. Patient slept well overnight with no complaints and without complications. Patient remains in stable condition with all needs met this shift. Bed is low/locked, two side rails up, and call norwood within reach. Patient does not have any immediate needs or concerns at this time. Patient care endorsed to day shift nurse.
--- NOTE | 2018-04-13 07:28 | NUR ---
MS RN OPENING NOTE RECEIVED PATIENT IN BED, SLEEPING, EASILY AROUSED WITH VERBAL STIMULI, ORIENTED X4. ON ROOM AIR TOLERATING WELL. RESPIRATIONS EVEN AND UNLABORED. IN NO APPARENT DISTRESS OR DISCOMFORT AT THIS TIME. PATIENT IS ABLE TO COMMUNICATE NEED. DENIES PAIN AND SOB AT THIS TIME. PATIENT IS AMBULATORY WITH BRP. WITH LEFT WRIST 22G IVC, SL, PATENT AND INTACT. ALL NEEDS ATTENDED, KEPT CLEAN AND COMFORTABLE. SAFETY MEASURES IN PLACE, BED IN LOW LOCKED POSITION, SIDE RAILS UP X2, CALL LIGHT WITHIN EASY REACH. WILL CONTINUE TO MONITOR.
[2018-04-13 08:00] VITALS: BP 120/68
[2018-04-13 08:21] LABS: OCCULT BLOOD STOOL NEGATIVE (NEGATIVE)
[2018-04-13] MEDS: PANTOPRAZOLE 40 MG TABLET.DR PO SCH (08:21)
[2018-04-13] MEDS: LACTOBACILLUS RHAMNOSUS GG 1 EACH CAP.SPRINK PO SCH (08:21)
[2018-04-13] MEDS: FAMOTIDINE (20 MG) 20 MG TABLET PO SCH (08:21)
[2018-04-13] MEDS: METHOCARBAMOL (750MG) 750 MG TABLET PO SCH (08:21)
[2018-04-13] MEDS: busPIRone 5 MG TABLET PO SCH (08:21)
[2018-04-13] MEDS ORDERED: AZIT250T PO (11:46)
[2018-04-13] MEDS ORDERED: AMOX500T2 PO (11:46)
[2018-04-13] MEDS: SOD FERRIC GLUC 125 MG in IV NS 0.9% 100 ML IV SCH (13:22)
--- NOTE | 2018-04-13 15:04 | NUR ---
MS MANUFACTURING WEAVER NOTE RECEIVED ODER FOR DISCHARGE. PATIENT IN STABLE CONDITION, VITAL SIGNS WNL. ALERT ORIENTED X4. ON ROOM AIR WITH O2 SATURATION ABOVE 97%. ALL DUE MEDICATIONS GIVEN, DISCHARGE INSTRUCTIONS PREPARED VIA EXITCARE. EDUCATION PROVIDED TO THE PATIENT, VERBALLY AND VIA HANDOUT, REGARDING NEW AND OLD MEDICATIONS, DISCHARGE INSTRUCTIONS AND FOLLOW UP CARE. PAPERWORK SIGNED, NEW PRESCRIPTION MEDICATIONS WAS PROVIDED TO THE PATIENT WELL FAXED TO THER PREFERRED PHARMACY. ALL BELONGINGS ARE CHECKED AND ACCOUNTED FOR. IVC REMOVED UPON DEPARTURE, TIP INTACT, NO SIGN OF INFECTION OBSERVED. ID BAND REMOVED. PATIENT LEFT THE UNIT AMBULATING INDEPENDENTLY WITH THE ESCORT OF DAUGHTER AND LASHAUN HEALY AT 1500.
[2018-04-13] MEDS ORDERED: AZITHROMYCIN 250 MG TABLET PO SCH (20:00)
== END 2018-04-13 15:00 | disposition home or self-care (01) | DRG 720 ==
LOC: ER 17:24 → TELE 20:11 → MED 04-10 14:36
PROVIDERS: ADMIT Nurse Practitioner Acute Care; ATTEND Nurse Practitioner Acute Care
DX: A41.9 Sepsis, unspecified organism (principal); E46 Unspecified protein-calorie malnutrition; J18.9 Pneumonia, unspecified organism; D69.6 Thrombocytopenia, unspecified; B44.81 Allergic bronchopulmonary aspergillosis; E87.1 Hypo-osmolality and hyponatremia; E88.09 Other disorders of plasma-protein metabolism, not elsewhere classified; E83.42 Hypomagnesemia; E78.5 Hyperlipidemia, unspecified; E66.9 Obesity, unspecified; J45.909 Unspecified asthma, uncomplicated; Z87.01 Personal history of pneumonia (recurrent); Z87.891 Personal history of nicotine dependence; R07.89 Other chest pain; Z68.27 Body mass index [BMI] 27.0-27.9, adult; J40 Bronchitis, not specified as acute or chronic; E86.1 Hypovolemia; Z82.49 Family history of ischemic heart disease and other diseases of the circulatory system
CPT/HCPCS: 36415; 71045-TC; 80048-TC; 80053-TC; 80061-TC; 82272-TC; 82306; 82728-TC; 83540-TC; 83605-TC; 83735-TC; 83880; 84100-TC; 84443-TC; 84484-TC; 85025-TC; 85730-TC; 87040-TC; 87081-TC; 93307-TC; 93970-TC; A4216; A4606; J0456; J0696; J1885; J2270; J2916; J3475; J7030; J7060; Q9967; Z7610

== ENCOUNTER 2018-11-28 20:13 | Emergency (ER) | payer MEDICARE, MEDICAID ==
[~2018-11-28] VITALS: Ht 157.5 cm; Wt 77.1 kg
[~2018-11-28 20:13] MED LIST changes: -ALEN70TA45 PO; +ALEN70TA6 PO; +AMOX500T2 PO; +AZIT250T PO; +BUSP5TAB3 PO; +FLUT1BLS IH; -LEVO750T21 PO; +MECL-138 PO; +METH-406 PO; -METH4TAB17 PO; +OMEP40CA37 PO; -SIMV20TA6 PO
--- NOTE | 2018-11-28 20:20 | NUR ---
PT BIBSELF C/C "R SIDE RIB PAIN X1 DAY" +SOB , +DIZZY, +N/V. PT TURKS AND [place] SPEAKING. DAUGHTER AT BEDSIDE. AOX4. PT ON MONITOR IN BED 11. WILL CONTINUE TO MONITOR.
--- NOTE | 2018-11-28 20:40 | NUR ---
BLOOD DRAWN AND GIVEN TO LAB
[2018-11-28 20:49] LABS: BASOPHILS # (AUTO) 0.1 /CMM (0.0-0.2); BASOPHILS % (AUTO) 0.5 % (0.0-2.0); EOSINOPHILS % (AUTO) 1.1 % (0.0-6.0); HEMATOCRIT 39 % (33-45); HEMOGLOBIN 12.9 g/dL (11.5-14.8); LYMPHOCYTES # (AUTO) 3.1 /CMM (0.8-4.8); LYMPHOCYTES % (AUTO) 29.1 % (20.0-44.0); MEAN CORPUSCULAR HGB CONC 33 g/dl (31.0-36.0); MEAN CORPUSCULAR VOLUME 94 fL (82-100); MONOCYTES # (AUTO) 0.7 /CMM (0.1-1.30); MONOCYTES % (AUTO) 6.1 % (2.0-12.0); NEUTROPHILS # (AUTO) 6.8 /CMM (1.8-8.9); NEUTROPHILS % (AUTO) 63.2 % (43.0-81.0); PLATELET COUNT (AUTO) 172 /CMM (150-450); RED BLOOD CELL COUNT(AUTO) 4.16 MIL/uL (4.0-5.2); WHITE BLOOD COUNT (AUTO) 10.7 K/uL (4.3-11.0)
--- NOTE | 2018-11-28 20:50 | NUR ---
RADIOLOGY AT BEDSIDE FOR XRAY
[2018-11-28 20:59] LABS: CALCIUM, SERUM 9.1 mg/dL (8.5-10.1); CARBON DIOXIDE 26 mmol/L (21-32); CHLORIDE 106 mmol/L (98-107); CREATININE 1.5 mg/dL (0.6-1.3); GLUCOSE 114 mg/dL (74-106); POTASSIUM 3.7 mmol/L (3.5-5.1); SODIUM SERUM 140 mmol/L (136-145); UREA NITROGEN, BLOOD 16 mg/dL (7-18)
[2018-11-28] MEDS ORDERED: IV NS 0.9% 1,000 ML BAG IV ONE (21:00)
[2018-11-28 21:05] LABS: ALANINE AMINOTRANSFERASE 38 U/L (12-78); ALBUMIN 3.7 g/dL (3.4-5.0); ALKALINE PHOSPHATASE 84 U/L (46-116); ASPARTATE AMINOTRANSFERASE 23 U/L (15-37); BILIRUBIN,DIRECT 0.1 mg/dL (0.0-0.2); BILIRUBIN,TOTAL 0.2 mg/dL (0.2-1.0); LIPASE 275 U/L (73-393); TOTAL PROTEIN, SERUM 7.2 g/dL (6.4-8.2)
[2018-11-28] MEDS ORDERED: KETOROLAC TROMETHAMINE INJ 30 MG/ML VIAL IV ONE (21:30)
[2018-11-28] MEDS ORDERED: KETOROLAC TROMETHAMINE INJ 30 MG/ML VIAL ONE (21:34)
--- NOTE | 2018-11-28 21:38 | NUR ---
URINE COLLECTED AND SENT TO LAB
[2018-11-28 21:56] LABS: APPEARANCE,URINE Clear (CLEAR); BILIRUBIN,URINE Negative (NEGATIVE); BLOOD, URINE Negative Ery/uL (NEGATIVE); COLOR,URINE Yellow (YELLOW); KETONES,URINE Negative (NEGATIVE); LEUKOCYTE ESTERASE ,URINE Trace (NEGATIVE); NITRITE, URINE Negative (NEGATIVE); PH,URINE 7.5 (5.0-8.0); PROTEIN,URINE Negative (NEGATIVE); UGLUCOSE Negative (NEGATIVE); UROBILINOGEN,URINE 0.2 EU/dL (0.2)
[2018-11-28 22:10] VITALS: BP 139/71
[2018-11-28] MEDS ORDERED: MORPHINE SULFATE INJ 2 MG/ML DISP.SYRIN IV ONE (22:30)
[2018-11-28] MEDS ORDERED: ONDANSETRON HCL/PF 4 MG/2 ML VIAL IVP ONE (22:30)
[2018-11-28 22:38] LABS: BACTERIA,URINE Few /HPF (None Seen); RBC,URINE 0-2 /HPF (0-2); SQUAMOUS EPITHELIAL CELL,UR Few /HPF (None Seen); WBC,URINE 21-50 /HPF (0-3)
[2018-11-28] MEDS ORDERED: ONDANSETRON HCL/PF 4 MG/2 ML VIAL ONE (23:06)
[2018-11-28] MEDS ORDERED: MORPHINE SULFATE INJ 4 MG/ML DISP.SYRIN ONE (23:06)
--- NOTE | 2018-11-28 23:18 | NUR ---
IV removed. Catheter intact and site benign. Pressure and 4x4 applied to site. No bleeding noted.Patient discharged to home in stable condition. Written and verbal after care instructions given. Patient verbalizes understanding of instruction. PT AMBULATORY WITH STEADY GAIT ACCOMPANIED BY DAUGHTER.
== END 2018-11-28 23:21 | disposition home or self-care (01) ==
LOC: ER 20:20
DX: R10.11 Right upper quadrant pain (principal); R42 Dizziness and giddiness; E78.00 Pure hypercholesterolemia, unspecified; F17.200 Nicotine dependence, unspecified, uncomplicated; Z98.890 Other specified postprocedural states
CPT/HCPCS: 36415; 71045; 76705; 80048; 80076; 81001; 83690; 84484; 85025; 85378; 87086; 93005; 96361; 96374; 96375; 99284; 99406; A4606; J1885; J2270; J2405; J7030; 81000-TC

== ENCOUNTER 2022-06-18 20:28 | Emergency (ER) | payer MEDICARE, OTHER ==
[~2022-06-18] VITALS: Ht 154.9 cm; Wt 69.9 kg
[~2022-06-18 20:28] MED LIST changes: -ALEN70TA6 PO; +ALEN70TA80 PO; +OMEP40CA21 PO; -OMEP40CA37 PO
--- NOTE | 2022-06-18 20:57 | NUR ---
BIB DAUGHTER FROM HOME C/O COLDLIKE SYMPTOMS COUGH,FEVER, SORE THROAT X1 WK MD AT URGENT CARE TOLD PT TO GO TO ER. PRESCRIBED DEXAMETHASONE 4MG. AMBULATORY, PLACED ON BED, AAOX4, BREATHING EVEN AND UNLABORED SATURATING AT 98%RA.
--- NOTE | 2022-06-18 21:16 | NUR ---
SWAB FOR RAPID ANTIGEN SENT TO LAB
--- NOTE | 2022-06-18 21:25 | NUR ---
X-RAY TECH AT BEDSIDE
[2022-06-18] MEDS ORDERED: AZIT250T13 PO (23:37)
--- NOTE | 2022-06-18 23:44 | NUR ---
Patient discharged to home in stable condition. Written and verbal after care instructions given. Patient verbalizes understanding of instruction.
[2022-06-18 23:45] VITALS: BP 136/68
== END 2022-06-19 00:25 | disposition home or self-care (01) ==
LOC: ER 20:40
DX: J18.9 Pneumonia, unspecified organism (principal); F17.200 Nicotine dependence, unspecified, uncomplicated; Z79.899 Other long term (current) drug therapy
CPT/HCPCS: 71045-TC

== ENCOUNTER 2024-02-04 20:42 | Emergency (ER) | payer MEDICARE, OTHER ==
[~2024-02-04] VITALS: Ht 160 cm; Wt 74.8 kg
[~2024-02-04 20:42] MED LIST changes: +AZIT250T13 PO
[2024-02-04] MEDS ORDERED: RITO100T4 PO (23:23)
[2024-02-05 01:04] VITALS: BP 140/75; TEMP 98.3; O2SAT 98
== END 2024-02-05 01:04 | disposition home or self-care (01) ==
LOC: ER 20:46
DX: U07.1 COVID-19 (principal); E78.00 Pure hypercholesterolemia, unspecified; F17.200 Nicotine dependence, unspecified, uncomplicated; Z98.890 Other specified postprocedural states; Z79.899 Other long term (current) drug therapy
CPT/HCPCS: 71045-TC